=== PATIENT | male | born 1985 | race Caucasian/White ===

== ENCOUNTER → 2016-06-03 | Outpatient (CLI) | payer OTHER ==
[~2016-06-03] MED LIST: BACL10TA PO; DICL50TA4 PO; HYDR-963 PO; IOHEXOL 180 MG/ML 10 ML VIAL. IT ONE; LIDOCAINE 1% Multi-Dose 20 ML VIAL. ID ONE; TRAM50TA PO
--- NOTE | 2016-06-03 16:47 | KCIC ---
AP and lateral lumbar spine with flexion and extension views Indication: Reason For Study Reason: LUMBAR RADICULOPATHY, LOWER BACK PAIN X 1-2 YEARS / Spl. Instructions: / History: Findings: There is minimal anterolisthesis at L4-L5 which is only seen during flexion. Alignment and curvature are otherwise within normal limits. Vertebral body heights are maintained. There is mild disc height loss at L5-S1. Impression: Very minimal anterolisthesis of L4 on L5 seen only during flexion. Electronically signed by: Sly Sanches (Jun 03, 2016 16:46:25)
--- NOTE | 2016-06-03 16:52 | KCIC ---
PQRS STATEMENT One or more of the following individualized dose reduction techniques were utilized for this study:1.Automated exposure control. 2.Adjustment of the mA and/orkVaccording to patient size. 3.Use of iterative reconstruction technique CT lumbar myelogram Indication: Reason For Study Reason: LBP 1-2 YRS, LT DISC PROTRUSION L5/S1 CAUSING FORMINAL STENOSIS / Spl. Instructions: / History: Chronic LBP Technique: Multiple contiguous axial images were obtained through the lumbar spine after intrathecal administration of iodinated contrast. Coronal and sagittal reformations were created. Findings: Alignment and curvature are within normal limits. There is no compression deformity or fracture. The facets align appropriately. Visualized intra-abdominal contents are within normal limits. At L5-S1 there is no spinal stenosis. At L4-L5 there is a small left eccentric disc bulge which contacts the exiting left L4 nerve but does not appear to cause mass effect upon it. At L3-L4 there is no spinal stenosis. At L2-L3 there is no spinal stenosis. Impression: - There is a very small left lateral disc bulge at L4-L5 which contacts the exiting left L4 nerve. Otherwise essentially unremarkable CT lumbar myelogram. Electronically signed by: Sly Sanches (Jun 03, 2016 16:51:10)
--- NOTE | 2016-06-03 16:55 | KCIC ---
LUMBAR MYELOGRAM INDICATION: Reason For Study Reason: LUMBAR RADICULOPATHY, LOWER BACK PAIN X 1-2 YEARS / Spl. Instructions: FT 1:26, IMAGES 5, OMNI 180 15ML / History: NO KNOWN INJURY Fluoroscopy time: 1:26 minutes 5 spot images were obtained TECHNIQUE: After discussion of the procedure, indications, risks, benefits, and alternatives the patient provided written and oral consent for the procedure. With the patient in a prone position on the fluoroscopy table, the L3-L4 interspace was selected for puncture and the overlying skin was prepped and draped in sterile fashion. Local anesthesia was achieved with approximately 3 mL of buffered 1% lidocaine. Under intermittent fluoroscopic guidance, a 25 gauge Ramesh needle was advanced into the thecal space with return of clear CSF. Approximately 12 mL of Omni 180 contrast was administered into the thecal space under intermittent fluoroscopic observation. The needle was removed and pressure applied until hemostasis was achieved. The patient was sent to CT for scanning through the lumbar spine. The patient tolerated the procedure well without immediate complication. Post myelographic images demonstrate contrast within the thecal sac but no evidence for significant spinal stenosis. IMPRESSION: Technically successful fluoroscopy guided intrathecal injection of contrast, to be followed by CT myelogram of the lumbar spine. Electronically signed by: Sly Sanches (Jun 03, 2016 16:53:51)
== END | disposition home or self-care (01) ==
LOC: KCIC 13:43
PROVIDERS: ATTEND Neurological Surgery
DX: M54.16 Radiculopathy, lumbar region (principal); M43.16 Spondylolisthesis, lumbar region; M48.06 Spinal stenosis, lumbar region; M51.26 Other intervertebral disc displacement, lumbar region
CPT/HCPCS: 72110; 72132; 72265